=== PATIENT | female | born 1975 | race Caucasian/White ===

== ENCOUNTER 2017-11-16 15:18 | Emergency (ER) | payer BC | END 2017-11-16 15:56 | disposition left against medical advice (07) | LOC: ER 15:18 | DX: Z53.20 Procedure and treatment not carried out because of patient's decision for unspecified reasons (principal) ==

== ENCOUNTER 2018-03-03 18:25 | Emergency (ER) | payer BC ==
--- NOTE | 2018-03-03 18:40 | Emergency Department Record ---
History of Present Illness - General Chief Complaint: Headache Migraine Stated Complaint: ABDOMINAL PAIN/MIGRAINE Time Seen by Provider: 03/03/18 18:37 Source: Patient Mode of Arrival: Ambulatory Limitations: No limitations - History of Present Illness Initial Comments: pt has ruq pain and a a headache, nothing makes it better or worse. she has n but no v/c/d. pain is similar to pain with gallbladder MD Complaint: Headache Onset/Timin -: Week(s) Onset Description: Gradual Location: Frontal Severity: Moderate Severity scale (1-10): 7 Quality: Aching, Throbbing, Similar to previous headaches Consistency: Constant Improves With: Nothing Worsens With: None Associated Symptoms: Nausea Treatments Prior to Arrival: Acetaminophen Treatment Prior to Arrival Comment:: took around noon - Related Data Allergies Allergy/AdvReac Type Severity Reaction Status Date / Time No Known Drug Allergies Allergy Verified 03/03/18 18:33 Travel Screening - Travel/Exposure Within Last 30 Days Have you traveled within the last 30 days?: No - Travel/Exposure Within Last Year Have you traveled outside the [place] in the last year?: No - Additonal Travel Details Have you been exposed to anyone with a communicable illness?: No - Travel Symptoms Symptom Screening: None Review of Systems Reviewed: No additional complaints except as noted below Constitutional: Reports: As per HPI. Denies: Chills, Fever, Malaise, Night sweats, Weakness, Weight change Eyes: Reports: As per HPI. Denies: Eye discharge, Eye pain, Photophobia, Vision change ENT: Reports: As per HPI. Denies: Congestion, Dental pain, Ear pain, Epistaxis , Hearing loss, Throat pain Respiratory: Reports: As per HPI. Denies: Cough, Dyspnea, Hemoptysis, Stridor, Wheezes Cardiovascular: Reports: As per HPI. Denies: Arrhythmia, Chest pain, Dyspnea on exertion, Edema, Murmurs, Orthopnea, Palpitations, Paroxysmal nocturnal dyspnea, Rheumatic Fever, Syncope Endocrine: Reports: As per HPI. Denies: Fatigue, Heat or cold intolerance, Polydipsia, Polyuria Gastrointestinal: Reports: As per HPI, Abdominal pain, Nausea. Denies: Constipation, Diarrhea, Hematemesis, Hematochezia, Melena, Vomiting Genitourinary: Reports: As per HPI. Denies: Abnormal menses, Discharge, Dyspareunia, Dysuria, Frequency, Hematuria, Incontinence, Retention, Urgency Musculoskeletal: Reports: As per HPI. Denies: Arthralgia, Back pain, Gout, Joint swelling, Myalgia, Neck pain Skin: Reports: As per HPI. Denies: Bruising, Change in color, Change in hair/ nails, Lesions, Pruritus, Rash Neurological: Reports: As per HPI. Denies: Abnormal gait, Confusion, Headache, Numbness, Paresthesias, Seizure, Tingling, Tremors, Vertigo, Weakness Psychiatric: Reports: As per HPI. Denies: Anxiety, Auditory hallucinations, Depression, Homicidal thoughts, Suicidal thoughts, Visual hallucinations Hematological/Lymphatic: Reports: As per HPI. Denies: Anemia, Blood Clots, Easy bleeding, Easy bruising, Swollen glands Past Medical History - SOCIAL HISTORY Smoking Status: Current every day smoker Alcohol Use: None Drug Use: None - RESPIRATORY Hx Respiratory Disorders: No - CARDIOVASCULAR Hx Cardio Disorders: No - NEURO Hx Neuro Disorders: Yes Hx Dizziness: Yes (with decreased appetite) - GI Hx GI Disorders: Yes Hx Abdominal Pain: Yes Hx Nausea/Vomiting: Yes - Hx Genitourinary Disorders: No Comment:: last menstrual period march 1995 - ENDOCRINE Hx Endocrine Disorders: No - MUSCULOSKELETAL Hx Musculoskeletal Disorders: No - PSYCH Hx Psych Problems: No - HEMATOLOGY/ONCOLOGY Hx Hematology/Oncology Disorders: No Family Medical History Any Significant Family History?: Yes Family Hx Comment (NOT TO BE USED IN PLACE OF ITEMS BELOW): mom - cad ; cabg. dad-copd; cad Physical Exam - General General Appearance: Alert, Oriented x3, Cooperative, Mild distress - Head Head exam: Normal inspection - Eye Eye exam: Normal appearance, PERRL, EOMI Pupils: Normal accommodation - ENT ENT exam: Normal exam, Mucous membranes moist, Normal external ear exam, Normal orophraynx Ear exam: Normal external inspection. negative: External canal tenderness Nasal Exam: Normal inspection. negative: Discharge, Sinus tenderness Mouth exam: Normal external inspection, Tongue normal Teeth exam: Normal inspection. negative: Dental caries Throat exam: Normal inspection. negative: Tonsillar erythema, Tonsillar exudate - Neck Neck exam: Normal inspection, Full ROM. negative: Tenderness - Respiratory Respiratory exam: Normal lung sounds bilaterally. negative: Respiratory distress - Cardiovascular Cardiovascular Exam: Normal rhythm, Normal heart sounds, Tachycardia - GI/Abdominal GI/Abdominal exam: Soft, Normal bowel sounds, Tenderness (ruq) - Rectal Rectal exam: Deferred - exam: Deferred - Extremities Extremities exam: Normal inspection, Full ROM, Normal capillary refill. negative: Tenderness - Back Back exam: Reports: Normal inspection, Full ROM. Denies: Muscle spasm, Rash noted, Tenderness - Neurological Neurological exam: Alert, CN II-XII intact, Normal gait, Oriented X3 - Psychiatric Psychiatric exam: Normal affect, Normal mood - Skin Skin exam: Dry, Intact, Normal color, Warm Course Vital Signs 03/03/18 18:34 Temperature 98.4 F Pulse Rate 112 H Respiratory 18 Rate Blood Pressure 137/84 Pulse Ox 98 - Reevaluation(s) Reevaluation #1: 03/03/18 22:07 pt feels better Medical Decision Making - Lab Data Result diagrams: 03/03/18 18:30 03/03/18 18:30 Disposition Disposition: Discharge Clinical Impression: Ovarian cyst Qualifiers: Laterality: right Qualified Code(s): N83.201 - Unspecified ovarian cyst, right side Disposition: Home, Self-Care Condition: (1) Good Instructions: Acute Headache (ED), Ovarian Cyst (ED) Additional Instructions: follow up with family doctor. return sooner if worse. motrin with food Forms: Patient Portal Access Quality - Quality Measures Quality Measures: N/A - Blood Pressure Screening Does Patient Have Any of the Following: No Blood Pressure Classification: Pre-Hypertensive BP Reading Systolic Measurement: 137 Diastolic Measurement: 84 Screening for High Blood Pressure: < Pre-Hypertensive BP, F/U Documented > [ [id number]] Pre-Hypertensive Follow-up Interventions: Follow-up with rescreen every year.
[2018-03-03] MEDS: 0.9 % SODIUM CHLORIDE 1,000 ML BAG IV ONE (19:08)
[2018-03-03] MEDS: KETOROLAC 30 MG/ML VIAL IVP ONE (19:08)
[2018-03-03 19:15] LABS: BASO % 0.5 % (0-6); EOS % 2.6 % (0-6); GRAN % 56.2 % (47-80); HEMATOCRIT 45.6 % (35.0-47.0); HEMOGLOBIN 15.3 gm/dl (11.6-16.0); LYMPH % 35.8 % (16-45); MEAN CORPUSCULAR HEMOGLOBIN 31.9 pg (27-33); MEAN CORPUSCULAR HGB CONC 33.6 g/dl (32-36); MEAN PLATELET VOLUME 9.2 fl (7.4-10.4); MONO % 4.9 % (0-9); PLATELET COUNT 399 K/uL (130-400)
[2018-03-03 19:24] LABS: BLOOD UREA NITROGEN 11 mg/dL (6-20); CREATININE 0.6 mg/dL (0.5-0.9); EST GLOMERULAR FILTRATION RATE > 60 mL/min
[2018-03-03 19:26] LABS: GLUCOSE,RANDOM 93 mg/dL (74-109)
[2018-03-03 19:29] LABS: ALB/GLOB RATIO 1.5 (1.1-1.8); ALBUMIN 4.8 g/dL (4.0-5.0); ALKALINE PHOSPHATASE 78 U/L (35-104); ALT/SGPT 91 U/L (<33); AST/SGOT 27 U/L (10.0-35.0); LIPASE 20 U/L (13-60)
[2018-03-03] MEDS: HYDROCODONE/APAP 5/325MG TABLET PO ONE (22:17)
--- NOTE | 2018-03-06 16:11 | CT SCAN REPORT ---
EXAM: CT SCAN ABDOMEN/PELVIS W CONTRAST HISTORY: RIGHT LOWER QUADRANT PAIN. NAUSEA. TECHNIQUE: Following oral and intravenous contrast administration, helical CT examination of the abdomen and pelvis is performed including delayed images through the kidneys with 100 mL of Omnipaque-300 utilized. COMPARISON: CT abdomen and pelvis with contrast dated 11/25/2016. FINDINGS: Minor centrilobular emphysema is suggested within the central right lung base, stable. Minor linear scarring versus atelectasis also noted posteriorly in each lung base. No pleural or pericardial effusion. The heart is not enlarged. The liver, spleen, pancreas, adrenal glands, and kidneys remain normal in appearance. The gallbladder is surgically absent. There is mild prominence of the common hepatic/common bile duct without intrahepatic biliary ductal dilatation. The common duct measures approximately 9 mm in diameter. No obstructing lesion is however seen. This likely relates to physiologic response to surgical absence of the gallbladder. If clinically warranted, this could be correlated with serum bilirubin and alkaline phosphatase levels. The portal vein is patent. There is mild atherosclerosis without aneurysmal dilatation of the abdominal aorta nor iliac arteries. There is a well-circumscribed fluid density structure in the right adnexa likely arising from the right ovary measuring 2.5 x 2.3 cm. This is consistent with a dominant follicle/functional ovarian cyst. No other evidence of pelvic mass nor lymphadenopathy. Trace fluid in the cul-de-sac is possible, likely physiologic. No gross bowel dilatation nor bowel wall thickening. The appendix is visualized and normal in appearance. No free intraperitoneal air. The abdominal wall is intact. No lytic or blastic bone lesion. IMPRESSION: 1. PROMINENT CYSTIC STRUCTURE IN THE RIGHT ADNEXA LIKELY ARISING FROM THE RIGHT OVARY MEASURING 2.5 X 2.3 CM. THIS IS LIKELY A DOMINANT FOLLICLE/FUNCTIONAL OVARIAN CYST. TRACE FLUID IN THE CUL-DE-SAC QUESTIONED. THIS IS NONSPECIFIC BUT LIKELY PHYSIOLOGIC. 2. NORMAL APPENDIX. 3. POST CHOLECYSTECTOMY CHANGES. MILD PROMINENCE OF THE COMMON HEPATIC/COMMON BILE DUCT, DISCUSSED ABOVE. JOB NUMBER: [id number] [facility]
== END 2018-03-03 22:22 | disposition home or self-care (01) ==
LOC: ER 18:25
DX: N83.201 Unspecified ovarian cyst, right side (principal); R51 Headache; R11.0 Nausea; F17.210 Nicotine dependence, cigarettes, uncomplicated
CPT/HCPCS: 74177; 80053; 83690; 85025; 96374; 99284; J1885; J7030